=== PATIENT | male | born 1965 | race African-American/Black ===

== ENCOUNTER 2018-10-06 13:01 | Inpatient (IN) ==
[2018-10-06 14:17] LABS: Eosinophils # 0.1 10*3/uL (0.0-0.87); Eosinophils % 2.3 % (0.00-10.9); Hematocrit 35.1 VOL% (42.0-52.0); Immature Granulocytes % 0.5 %; Immature Granulocytes Absolute 0.02 #; Lymphocytes # 0.9 10*3/uL (1.4-4.0); Lymphocytes % 24.5 % (21.2-54.2); Mean Corpuscular HGB Conc 31.3 GM/DL (32-36); Mean Corpuscular Hemoglobin 29 PG (27-34); Mean Corpuscular Volume 90.9 FL (87-102); Mean Platelet Volume 9.8 FL (9.6-12.0); Monocytes # 0.4 10*3/uL (0.11-0.8); Monocytes % 9.6 % (1.7-12.7); Neutrophils # 2.4 10*3/uL (1.4-7.4); Neutrophils % 62.1 % (38.7-73.9); Platelet Count 244 T/CUMM (130-400); Red Blood Count 3.86 MC/CUMM (3.8-5.5); Red Cell Distribution Width 13.3 % (9.3-17.3); White Blood Count 3.8 T/CUMM (4-12)
[2018-10-06 14:43] LABS: Albumin 2.7 G/DL (3.4-5.0); Osmolality,Calculated 264.4 MOS/KG (273-304); Total Protein 8.7 G/DL (6.4-8.3)
[2018-10-06] MEDS ORDERED: ONDANSETRON 4 MG/2 ML VIAL IV STA (15:15)
[2018-10-06] MEDS ORDERED: NITROGLYCERIN 2% OINT 1 INCH/GM PACK TOP STA (15:15)
[2018-10-06] MEDS ORDERED: ASPIRIN 325 MG TABLET PO STA (15:15)
[2018-10-06] MEDS ORDERED: MORPHINE 4 MG/1 ML VIAL IV STA (15:15)
[2018-10-06] MEDS ORDERED: DEXTROSE 50% 25 GM/50 ML VIAL IV PRN (15:31)
[2018-10-06] MEDS ORDERED: GLUCAGON 1 MG VIAL IM PRN (15:31)
[2018-10-06] MEDS ORDERED: ACETAMINOPHEN 325 MG TABLET PO PRN (15:31)
[2018-10-06] MEDS ORDERED: ONDANSETRON 4 MG/2 ML VIAL IV PRN (15:31)
[2018-10-06] MEDS ORDERED: MAGNESIUM SULF RIDER 2 GM in PREMIX 1 EACH IV PRN (15:35)
[2018-10-06] MEDS ORDERED: POTASSIUM CHLORIDE RIDER 10 MEQ in PREMIX 1 EACH IV PRN (15:35)
[2018-10-06] MEDS ORDERED: POTASSIUM CHLORIDE 20 MEQ TABLET PO PRN (15:35)
[2018-10-06] MEDS ORDERED: MAGNESIUM SULF RIDER 4 GM in PREMIX 1 EACH IV PRN (15:35)
[2018-10-06 16:09] LABS: Apearance,Urine CLEAR (Clear); Bilirubin,Urine Negative (Negative); Blood, Urine Small mg/dL (Negative); Glucose,Urine (UA) Negative (Negative); Ketones,Urine Negative (Negative); Nitrite,Urine Negative (Negative); Protein,Urine Negative; RBC,Urine 1 /HPF (0-4); Squamous Epithelial Cell,Urine Occasional /HPF (0-10); Urine Color Yellow (Yellow); Urine Specific Gravity 1.008 (1.001-1.035); WBC,Urine 1 /HPF (0-6)
[2018-10-06 16:32] LABS: Thyroid Stimulating Hormone 1.91 uIU/ml (0.358-3.74)
[2018-10-06] MEDS: PANTOPRAZOLE 40 MG TABLET PO SCH (17:26)
[2018-10-06] MEDS: ENOXAPARIN 40 MG/0.4 ML SYRINGE SUBCUT SCH (17:29)
[2018-10-06] MEDS: FUROSEMIDE 40 MG/4 ML VIAL IV SCH (17:30)
[2018-10-06] MEDS: INSULIN LISPRO 100 UNIT/ML SUBCUT SCH ×2 (18:12→21:16)
[2018-10-06] MEDS: POTASSIUM CHLORIDE 20 MEQ TABLET PO SCH (21:16)
[2018-10-07 05:54] LABS: Basophils % 0.8 % (0.0-0.8); Eosinophils # 0.1 10*3/uL (0.0-0.87); Eosinophils % 2.2 % (0.00-10.9); Hematocrit 28.3 VOL% (42.0-52.0); Immature Granulocytes % 0.3 %; Immature Granulocytes Absolute 0.01 #; Lymphocytes # 0.8 10*3/uL (1.4-4.0); Lymphocytes % 22.1 % (21.2-54.2); Mean Corpuscular HGB Conc 31.8 GM/DL (32-36); Mean Corpuscular Hemoglobin 29 PG (27-34); Mean Corpuscular Volume 90.1 FL (87-102); Mean Platelet Volume 9.7 FL (9.6-12.0); Monocytes # 0.5 10*3/uL (0.11-0.8); Monocytes % 13.7 % (1.7-12.7); Neutrophils # 2.2 10*3/uL (1.4-7.4); Neutrophils % 60.9 % (38.7-73.9); Platelet Count 241 T/CUMM (130-400); Red Blood Count 3.14 MC/CUMM (3.8-5.5); Red Cell Distribution Width 13.2 % (9.3-17.3); White Blood Count 3.6 T/CUMM (4-12)
[2018-10-07 06:16] LABS: Albumin 2.4 G/DL (3.4-5.0); Bilirubin,Total 1.1 MG/DL (0.2-1.0); Calcium 7.8 MG/DL (8.5-10.1); Osmolality,Calculated 261.5 MOS/KG (273-304); Potassium 3.9 MMOL/L (3.5-5.1); Risk Ratio 1.68; Total Protein 7.9 G/DL (6.4-8.3); VLDL CHOLESTEROL 9.6 MG/DL
[2018-10-07] MEDS: INSULIN LISPRO 100 UNIT/ML SUBCUT SCH (07:57)
[2018-10-07 10:03] LABS: INR 1.2; PT Patient Result 13.4 SECS
[2018-10-07] MEDS: POTASSIUM CHLORIDE 20 MEQ TABLET PO SCH ×2 (10:29→21:44)
[2018-10-07] MEDS: PANTOPRAZOLE 40 MG TABLET PO SCH (10:29)
[2018-10-07] MEDS: FUROSEMIDE 40 MG/4 ML VIAL IV SCH (10:29)
[2018-10-07] MEDS ORDERED: LACTULOSE 20 GM/30 ML UDCUP PO SCH (10:30)
[2018-10-07] MEDS: cefTRIAXone 1,000 MG in SYRINGE 1 EACH IV SCH (10:36)
[2018-10-07 10:37] LABS: % Iron Saturation 8.5 % (18-50); Ferritin 322.5 ng/ml (26-388)
[2018-10-07 11:00] LABS: Folate 5.7 NG/ML (5.4-24.0)
[2018-10-07] MEDS: AZITHROMYCIN INJ 500 MG in SODIUM CHLORIDE 0.9% 250 ML IV SCH (11:45)
[2018-10-07] MEDS: SPIRONOLACTONE 25 MG TABLET PO SCH ×2 (11:45→21:45)
[2018-10-07] MEDS: LACTULOSE 20 GM/30 ML UDCUP PO SCH ×3 (11:45→21:45)
[2018-10-07] MEDS: ALBUTEROL/IPRATROPIUM 3 ML NEB RESP TX SCH ×3 (14:27→23:48)
[2018-10-07 15:12] LABS: Total Protein,Pleural Fluid 5.7 G/DL
[2018-10-07 15:44] LABS: RBC,Pleural Fluid > 100000 T/CUMM
[2018-10-07] MEDS: CYANOCOBALAMIN 1000 MCG/1 ML VIAL IM SCH (18:18)
[2018-10-07 19:18] LABS: Lymphocytes,Pleural Fluid 98 %; Neutrophils,Pleural Fluid 2 %
[2018-10-07] MEDS: FOLIC ACID 1 MG TABLET PO SCH (21:44)
[2018-10-07] MEDS: ENOXAPARIN 40 MG/0.4 ML SYRINGE SUBCUT SCH (21:46)
[2018-10-08] MEDS: ALBUTEROL/IPRATROPIUM 3 ML NEB RESP TX SCH ×6 (03:14→23:17)
[2018-10-08 05:14] LABS: Eosinophils # 0.1 10*3/uL (0.0-0.87); Eosinophils % 1.7 % (0.00-10.9); Hematocrit 27.9 VOL% (42.0-52.0); Hemoglobin 8.7 GM/DL (14.0-18.0); Immature Granulocytes % 0.2 %; Immature Granulocytes Absolute 0.01 #; Mean Corpuscular HGB Conc 31.2 GM/DL (32-36); Mean Corpuscular Hemoglobin 28 PG (27-34); Mean Corpuscular Volume 90.9 FL (87-102); Mean Platelet Volume 9.4 FL (9.6-12.0); Monocytes # 0.6 10*3/uL (0.11-0.8); Monocytes % 14.3 % (1.7-12.7); Neutrophils # 2.4 10*3/uL (1.4-7.4); Neutrophils % 58.8 % (38.7-73.9); Platelet Count 202 T/CUMM (130-400); Red Blood Count 3.07 MC/CUMM (3.8-5.5); Red Cell Distribution Width 13.3 % (9.3-17.3); White Blood Count 4.1 T/CUMM (4-12)
[2018-10-08 05:26] LABS: Calcium 7.5 MG/DL (8.5-10.1); Osmolality,Calculated 264.4 MOS/KG (273-304); Potassium 3.9 MMOL/L (3.5-5.1)
[2018-10-08] MEDS ORDERED: MAGNESIUM SULF RIDER 4 GM in PREMIX 1 EACH IV ONE (08:00)
[2018-10-08] MEDS ORDERED: FUROSEMIDE 40 MG/4 ML VIAL IV SCH (09:00)
[2018-10-08] MEDS: SPIRONOLACTONE 25 MG TABLET PO SCH (09:52)
[2018-10-08] MEDS: PANTOPRAZOLE 40 MG TABLET PO SCH (09:53)
[2018-10-08] MEDS: POTASSIUM CHLORIDE 20 MEQ TABLET PO SCH (09:53)
[2018-10-08] MEDS: cefTRIAXone 1,000 MG in SYRINGE 1 EACH IV SCH (09:53)
[2018-10-08] MEDS: AZITHROMYCIN INJ 500 MG in SODIUM CHLORIDE 0.9% 250 ML IV SCH (09:54)
[2018-10-08] MEDS: LACTULOSE 20 GM/30 ML UDCUP PO SCH (09:54)
[2018-10-08] MEDS: CYANOCOBALAMIN 1000 MCG/1 ML VIAL IM SCH (09:54)
[2018-10-08] MEDS: predniSONE 20 MG TABLET PO SCH (12:49)
[2018-10-08] MEDS ORDERED: MAGNESIUM SULF RIDER 2 GM in PREMIX 1 EACH IV PRN (13:48)
[2018-10-08] MEDS ORDERED: POTASSIUM CHLORIDE RIDER 10 MEQ in PREMIX 1 EACH IV PRN (13:48)
[2018-10-08] MEDS: ENOXAPARIN 40 MG/0.4 ML SYRINGE SUBCUT SCH (21:16)
[2018-10-08] MEDS: FOLIC ACID 1 MG TABLET PO SCH (21:17)
[2018-10-09] MEDS: ALBUTEROL/IPRATROPIUM 3 ML NEB RESP TX SCH ×3 (02:19→11:49)
[2018-10-09 05:17] LABS: Basophils % 0.2 % (0.0-0.8); Hematocrit 27.5 VOL% (42.0-52.0); Hemoglobin 8.7 GM/DL (14.0-18.0); Immature Granulocytes % 0.4 %; Immature Granulocytes Absolute 0.02 #; Lymphocytes # 0.4 10*3/uL (1.4-4.0); Lymphocytes % 8.9 % (21.2-54.2); Mean Corpuscular HGB Conc 31.6 GM/DL (32-36); Mean Corpuscular Hemoglobin 29 PG (27-34); Mean Corpuscular Volume 91.1 FL (87-102); Mean Platelet Volume 9.7 FL (9.6-12.0); Monocytes # 0.4 10*3/uL (0.11-0.8); Monocytes % 9.1 % (1.7-12.7); Neutrophils # 3.8 10*3/uL (1.4-7.4); Neutrophils % 81.4 % (38.7-73.9); Platelet Count 208 T/CUMM (130-400); Red Blood Count 3.02 MC/CUMM (3.8-5.5); Red Cell Distribution Width 13.2 % (9.3-17.3); White Blood Count 4.6 T/CUMM (4-12)
[2018-10-09 05:36] LABS: Calcium 7.6 MG/DL (8.5-10.1); Osmolality,Calculated 268.2 MOS/KG (273-304); Potassium 4.1 MMOL/L (3.5-5.1)
[2018-10-09] MEDS ORDERED: diphenhydrAMINE CAP 25 MG CAPSULE PO ONE (07:00)
[2018-10-09] MEDS ORDERED: DIAZEPAM 5 MG TABLET PO ONE (07:00)
[2018-10-09] MEDS ORDERED: LACTULOSE 20 GM/30 ML UDCUP PO SCH (09:00)
[2018-10-09] MEDS ORDERED: AZITHROMYCIN 250 MG TABLET PO SCH (10:00)
[2018-10-09] MEDS ORDERED: CEFDINIR 300 MG CAPSULE PO SCH (10:00)
[2018-10-09] MEDS: PANTOPRAZOLE 40 MG TABLET PO SCH (10:03)
[2018-10-09] MEDS: CYANOCOBALAMIN 1000 MCG/1 ML VIAL IM SCH (10:03)
[2018-10-09] MEDS: predniSONE 20 MG TABLET PO SCH (10:03)
[2018-10-09] MEDS: AZITHROMYCIN INJ 500 MG in SODIUM CHLORIDE 0.9% 250 ML IV SCH (10:07)
[2018-10-09 11:56] VITALS: BP 143/91
== END 2018-10-09 13:10 | disposition home or self-care (01) | DRG 194 ==
LOC: N.ED 13:01 → N.EDINP 13:01 → SUATTDRO 15:31 → N.2E 16:32
PROVIDERS: ADMIT Internal Medicine Nephrology; ATTEND Internal Medicine

== ENCOUNTER 2019-06-20 15:04 | Inpatient (IN) ==
[2019-06-20] MEDS ORDERED: LACTATED RINGERS 1,000 ML IV ONE (15:23)
[2019-06-20] MEDS ORDERED: ONDANSETRON 4 MG/2 ML VIAL IV ONE (15:24)
[2019-06-20 15:50] LABS: Basophils % 0.7 % (0.0-0.8); Eosinophils % 0.2 % (0.00-10.9); Hematocrit 42.5 VOL% (42.0-52.0); Immature Granulocytes % 0.5 %; Immature Granulocytes Absolute 0.03 #; Lymphocytes # 0.5 10*3/uL (1.4-4.0); Lymphocytes % 7.8 % (21.2-54.2); Mean Corpuscular HGB Conc 32.9 GM/DL (32-36); Mean Platelet Volume 9.6 FL (9.6-12.0); Monocytes % 3.1 % (1.7-12.7); Neutrophils % 87.7 % (38.7-73.9); Platelet Count 216 T/CUMM (130-400); Red Blood Count 4.62 MC/CUMM (3.8-5.5); Red Cell Distribution Width 13.8 % (9.3-17.3); White Blood Count 5.9 T/CUMM (4-12)
[2019-06-20 16:09] LABS: Albumin 3.4 G/DL (3.4-5.0); Calcium 8.7 MG/DL (8.5-10.1); Osmolality,Calculated 272.8 MOS/KG (273-304); Total Protein 9.6 G/DL (6.4-8.3)
[2019-06-20] MEDS ORDERED: LABETALOL 20 MG/4 ML SYRINGE IV ONE ×2 (17:25→18:05)
[2019-06-20] MEDS ORDERED: LABETALOL 20 MG/4 ML SYRINGE IV STA ×3 (17:35→18:55)
[2019-06-20] MEDS ORDERED: HYDROmorphone 2 MG/1 ML VIAL ONE (18:39)
[2019-06-20] MEDS ORDERED: HYDROmorphone 2 MG/1 ML VIAL IV STA (18:45)
[2019-06-20] MEDS ORDERED: ONDANSETRON 4 MG/2 ML VIAL IV STA (18:55)
[2019-06-20] MEDS ORDERED: hydrALAZINE 20 MG/1 ML VIAL ONE (22:44)
[2019-06-20] MEDS ORDERED: hydrALAZINE 20 MG/1 ML VIAL IV ONE (22:49)
[2019-06-20] MEDS ORDERED: PROMETHAZINE 25 MG/1 ML VIAL IM PRN (23:02)
[2019-06-20] MEDS ORDERED: ACETAMINOPHEN 325 MG TABLET PO PRN (23:02)
[2019-06-20] MEDS: SODIUM CHLORIDE 0.9% 1,000 ML IV SCH (23:36)
[2019-06-20] MEDS: cloNIDine 0.1 MG/24 HR PATCH TRANSDERM SCH (23:36)
[2019-06-20] MEDS: LORazepam 0.5 MG TABLET PO SCH (23:36)
[2019-06-21 04:31] LABS: Basophils % 0.5 % (0.0-0.8); Eosinophils % 0.5 % (0.00-10.9); Hematocrit 36.7 VOL% (42.0-52.0); Hemoglobin 12.1 GM/DL (14.0-18.0); INR 1.2; Immature Granulocytes % 0.4 %; Immature Granulocytes Absolute 0.03 #; Lymphocytes # 0.9 10*3/uL (1.4-4.0); Lymphocytes % 10.4 % (21.2-54.2); Mean Corpuscular Volume 92.4 FL (87-102); Mean Platelet Volume 9.7 FL (9.6-12.0); Monocytes % 8.5 % (1.7-12.7); Neutrophils % 79.7 % (38.7-73.9); PT Patient Result 12.8 SECS (9.6-12.2); Platelet Count 217 T/CUMM (130-400); Red Blood Count 3.97 MC/CUMM (3.8-5.5); Red Cell Distribution Width 13.5 % (9.3-17.3); White Blood Count 8.5 T/CUMM (4-12)
[2019-06-21] MEDS: HYDROmorphone 2 MG/1 ML VIAL IV PRN ×4 (04:37→21:49)
[2019-06-21 04:51] LABS: Albumin 2.8 G/DL (3.4-5.0); Bilirubin,Total 1.5 MG/DL (0.2-1.0); Calcium 8.4 MG/DL (8.5-10.1); Total Protein 8.2 G/DL (6.4-8.3)
[2019-06-21] MEDS ORDERED: POTASSIUM CHLORIDE RIDER 20 MEQ in PREMIX 1 EACH IV PRN (06:13)
[2019-06-21] MEDS ORDERED: MAGNESIUM SULF RIDER 2 GM in PREMIX 1 EACH IV ONE (06:30)
[2019-06-21] MEDS ORDERED: POTASSIUM CHLORIDE RIDER 10 MEQ in PREMIX 1 EACH IV PRN (06:31)
[2019-06-21] MEDS: carvediloL 3.125 MG TABLET PO SCH ×2 (07:31→16:29)
[2019-06-21] MEDS: SODIUM CHLORIDE 0.9% 1,000 ML IV SCH ×3 (07:31→23:44)
[2019-06-21] MEDS: ALLOPURINOL 100 MG TABLET PO SCH (08:27)
[2019-06-21] MEDS: ENOXAPARIN 40 MG/0.4 ML SYRINGE SUBCUT SCH (08:27)
[2019-06-21] MEDS: MAGNESIUM OXIDE 400 MG TABLET PO SCH ×2 (08:27→20:53)
[2019-06-21] MEDS: LORazepam 0.5 MG TABLET PO SCH ×2 (08:27→20:31)
[2019-06-21] MEDS: DOCUSATE SODIUM 100 MG CAPSULE PO SCH ×2 (08:27→20:31)
[2019-06-21] MEDS: LISINOPRIL 20 MG TABLET PO SCH (08:27)
[2019-06-21] MEDS: FUROSEMIDE 20 MG TABLET PO SCH (08:27)
[2019-06-21] MEDS: SPIRONOLACTONE 25 MG TABLET PO SCH (08:27)
[2019-06-21] MEDS: PANTOPRAZOLE 40 MG TABLET PO SCH (08:27)
[2019-06-21] MEDS: cloNIDine 0.1 MG/24 HR PATCH TRANSDERM SCH (08:33)
[2019-06-21] MEDS ORDERED: FUROSEMIDE 20 MG TABLET PO SCH (09:00)
[2019-06-21] MEDS ORDERED: LIDOCAINE 1% 20 ML VIAL ONE (10:31)
[2019-06-21] MEDS: LACTATED RINGERS 1,000 ML IV SCH ×2 (11:00→14:52)
[2019-06-21] MEDS ORDERED: LIDOCAINE 2% TOP JELLY 20 ML VIAL INTRAURETH ONE (11:19)
[2019-06-21 12:49] LABS: Apearance,Urine CLEAR (Clear); Bacteria,Urine Occasional /HPF (Few); Bilirubin,Urine Negative (Negative); Blood, Urine Large mg/dL (Negative); Glucose,Urine (UA) Negative (Negative); Ketones,Urine 20 mg/dL (Negative); Nitrite,Urine Negative (Negative); Protein,Urine Negative; RBC,Urine 13 /HPF (0-4); Squamous Epithelial Cell,Urine Occasional /HPF (0-10); Urine Color Yellow (Yellow); WBC,Urine 1 /HPF (0-6)
[2019-06-21] MEDS ORDERED: PROPOFOL 200 MG/20 ML VIAL IV ONE (12:54)
[2019-06-21] MEDS ORDERED: SEVOFLURANE 1 UNIT/15 MINUTE INH ONE (12:55)
[2019-06-21] MEDS ORDERED: ETOMIDATE 40 MG/20 ML VIAL IV ONE (12:55)
[2019-06-21] MEDS ORDERED: PHENYLEPHRINE 1 MG/10 ML SYRINGE IV ONE (12:55)
[2019-06-21] MEDS ORDERED: GLYCOPYRROLATE 0.4 MG/2 ML VIAL ONE (12:55)
[2019-06-21] MEDS ORDERED: MIDAZOLAM 2 MG/2 ML VIAL ONE (12:55)
[2019-06-21] MEDS ORDERED: ONDANSETRON 4 MG/2 ML VIAL ONE (12:55)
[2019-06-21] MEDS ORDERED: fentaNYL 100 MCG/2 ML VIAL ONE (12:55)
[2019-06-21] MEDS ORDERED: ROCURONIUM 100 MG/10 ML VIAL IV ONE (12:56)
[2019-06-21] MEDS ORDERED: LACTATED RINGERS 1,000 ML IV ONE (12:56)
[2019-06-21] MEDS ORDERED: NEOSTIGMINE 10 MG/10 ML VIAL ONE (12:56)
[2019-06-21] MEDS ORDERED: SODIUM CHLORIDE 0.9% 100 ML IV ONE (12:56)
[2019-06-21] MEDS ORDERED: SUCCINYLCHOLINE 200 MG/10 ML VIAL ONE (12:56)
[2019-06-21] MEDS ORDERED: ONDANSETRON 4 MG/2 ML VIAL IV PRN (13:14)
[2019-06-22] MEDS ORDERED: LACTATED RINGERS 1,000 ML IV ONE (06:05)
[2019-06-22] MEDS: SODIUM CHLORIDE 0.9% 1,000 ML IV SCH ×2 (06:12→16:40)
[2019-06-22 06:53] LABS: Basophils # 0.1 10*3/uL (0.0-0.2); Basophils % 0.3 % (0.0-0.8); Eosinophils % 0.1 % (0.00-10.9); Hematocrit 34.8 VOL% (42.0-52.0); Hemoglobin 11.3 GM/DL (14.0-18.0); Immature Granulocytes % 0.8 %; Immature Granulocytes Absolute 0.12 #; Lymphocytes # 1.2 10*3/uL (1.4-4.0); Lymphocytes % 8.2 % (21.2-54.2); Mean Corpuscular HGB Conc 32.5 GM/DL (32-36); Mean Corpuscular Volume 93.8 FL (87-102); Neutrophils % 79.6 % (38.7-73.9); Platelet Count 247 T/CUMM (130-400); Red Blood Count 3.71 MC/CUMM (3.8-5.5); Red Cell Distribution Width 13.8 % (9.3-17.3); White Blood Count 14.7 T/CUMM (4-12)
[2019-06-22 07:15] LABS: Calcium 7.1 MG/DL (8.5-10.1); Osmolality,Calculated 272.8 MOS/KG (273-304)
[2019-06-22] MEDS: SPIRONOLACTONE 25 MG TABLET PO SCH (09:12)
[2019-06-22] MEDS: FUROSEMIDE 20 MG TABLET PO SCH (09:12)
[2019-06-22] MEDS: DOCUSATE SODIUM 100 MG CAPSULE PO SCH (09:12)
[2019-06-22] MEDS: ALLOPURINOL 100 MG TABLET PO SCH (09:12)
[2019-06-22] MEDS: MAGNESIUM OXIDE 400 MG TABLET PO SCH (09:12)
[2019-06-22] MEDS: PANTOPRAZOLE 40 MG TABLET PO SCH (09:12)
[2019-06-22] MEDS: LORazepam 0.5 MG TABLET PO SCH ×2 (09:12→20:24)
[2019-06-22] MEDS: carvediloL 3.125 MG TABLET PO SCH ×2 (09:13→17:21)
[2019-06-22] MEDS: LISINOPRIL 20 MG TABLET PO SCH (09:13)
[2019-06-22] MEDS: ENOXAPARIN 40 MG/0.4 ML SYRINGE SUBCUT SCH (09:13)
[2019-06-22] MEDS: cefOXitin 1,000 MG in SYRINGE 1 EACH IV SCH ×3 (09:56→20:24)
[2019-06-22] MEDS: HYDROmorphone 2 MG/1 ML VIAL IV PRN ×2 (14:43→20:25)
[2019-06-22] MEDS: ALBUMIN 25% 25 GM in PREMIX 1 EACH IV SCH ×2 (16:39→22:13)
[2019-06-22] MEDS ORDERED: MAGNESIUM SULF RIDER 4 GM in PREMIX 1 EACH IV PRN (17:27)
[2019-06-22] MEDS: metroNIDAZOLE INJ 500 MG in PREMIX 1 EACH IV SCH (20:05)
[2019-06-23] MEDS: SODIUM CHLORIDE 0.9% 1,000 ML IV SCH ×4 (00:30→23:09)
[2019-06-23] MEDS: HYDROmorphone 2 MG/1 ML VIAL IV PRN ×4 (02:23→21:10)
[2019-06-23] MEDS: metroNIDAZOLE INJ 500 MG in PREMIX 1 EACH IV SCH ×3 (02:23→19:12)
[2019-06-23] MEDS: cefOXitin 1,000 MG in SYRINGE 1 EACH IV SCH ×4 (03:23→21:12)
[2019-06-23 04:05] LABS: Basophils # 0.1 10*3/uL (0.0-0.2); Basophils % 0.4 % (0.0-0.8); Eosinophils # 0.1 10*3/uL (0.0-0.87); Eosinophils % 0.9 % (0.00-10.9); Hemoglobin 10.7 GM/DL (14.0-18.0); Immature Granulocytes % 0.5 %; Immature Granulocytes Absolute 0.06 #; Lymphocytes # 0.8 10*3/uL (1.4-4.0); Lymphocytes % 6.2 % (21.2-54.2); Mean Corpuscular HGB Conc 32.4 GM/DL (32-36); Mean Corpuscular Volume 92.7 FL (87-102); Mean Platelet Volume 10.1 FL (9.6-12.0); Monocytes % 8.7 % (1.7-12.7); Neutrophils % 83.3 % (38.7-73.9); Platelet Count 203 T/CUMM (130-400); Red Blood Count 3.56 MC/CUMM (3.8-5.5); Red Cell Distribution Width 13.8 % (9.3-17.3); White Blood Count 12.6 T/CUMM (4-12)
[2019-06-23 04:23] LABS: Albumin 2.7 G/DL (3.4-5.0); Bilirubin,Total 1.8 MG/DL (0.2-1.0); Calcium 7.4 MG/DL (8.5-10.1); Osmolality,Calculated 276.7 MOS/KG (273-304); Total Protein 6.5 G/DL (6.4-8.3)
[2019-06-23] MEDS: ALBUMIN 25% 25 GM in PREMIX 1 EACH IV SCH ×3 (05:47→22:59)
[2019-06-23] MEDS: carvediloL 3.125 MG TABLET PO SCH ×2 (08:44→19:12)
[2019-06-23] MEDS: LORazepam 0.5 MG TABLET PO SCH ×2 (08:44→21:09)
[2019-06-23] MEDS: ENOXAPARIN 40 MG/0.4 ML SYRINGE SUBCUT SCH (09:30)
[2019-06-23 09:54] LABS: Neutrophils,Peritoneal Fluid 82 %
[2019-06-23 09:55] LABS: RBC,Peritoneal Fluid > 100000 T/CUMM
[2019-06-23] MEDS: ONDANSETRON 4 MG/2 ML VIAL IV PRN ×2 (14:03→21:07)
[2019-06-24] MEDS: metroNIDAZOLE INJ 500 MG in PREMIX 1 EACH IV SCH ×3 (02:33→18:41)
[2019-06-24] MEDS: cefOXitin 1,000 MG in SYRINGE 1 EACH IV SCH ×4 (02:36→20:16)
[2019-06-24 04:48] LABS: Basophils % 0.4 % (0.0-0.8); Eosinophils # 0.1 10*3/uL (0.0-0.87); Eosinophils % 1.5 % (0.00-10.9); Hematocrit 33.3 VOL% (42.0-52.0); Hemoglobin 10.8 GM/DL (14.0-18.0); Immature Granulocytes % 0.4 %; Immature Granulocytes Absolute 0.03 #; Lymphocytes # 0.7 10*3/uL (1.4-4.0); Lymphocytes % 8.3 % (21.2-54.2); Mean Corpuscular HGB Conc 32.4 GM/DL (32-36); Mean Corpuscular Volume 92.8 FL (87-102); Mean Platelet Volume 9.8 FL (9.6-12.0); Monocytes % 10.1 % (1.7-12.7); Neutrophils % 79.3 % (38.7-73.9); Platelet Count 189 T/CUMM (130-400); Red Blood Count 3.59 MC/CUMM (3.8-5.5); Red Cell Distribution Width 13.4 % (9.3-17.3); White Blood Count 8.2 T/CUMM (4-12)
[2019-06-24 05:10] LABS: Bilirubin,Total 1.6 MG/DL (0.2-1.0); Calcium 7.7 MG/DL (8.5-10.1); Osmolality,Calculated 277.5 MOS/KG (273-304); Total Protein 6.3 G/DL (6.4-8.3)
[2019-06-24] MEDS: ALBUMIN 25% 25 GM in PREMIX 1 EACH IV SCH (05:33)
[2019-06-24] MEDS: SODIUM CHLORIDE 0.9% 1,000 ML IV SCH ×3 (06:09→17:53)
[2019-06-24] MEDS: LORazepam 0.5 MG TABLET PO SCH ×2 (08:43→20:16)
[2019-06-24] MEDS: ENOXAPARIN 40 MG/0.4 ML SYRINGE SUBCUT SCH (08:43)
[2019-06-24] MEDS: carvediloL 3.125 MG TABLET PO SCH ×2 (08:43→18:41)
[2019-06-24] MEDS: ONDANSETRON 4 MG/2 ML VIAL IV PRN (09:00)
[2019-06-24] MEDS: hydrALAZINE 20 MG/1 ML VIAL IV PRN ×2 (09:05→18:41)
[2019-06-24] MEDS: HYDROmorphone 2 MG/1 ML VIAL IV PRN ×2 (11:00→20:17)
[2019-06-24] MEDS ORDERED: INFLUENZA VIRUS VACCINE 0.5 ML SYRINGE IM ONE (11:28)
[2019-06-24] MEDS: METOCLOPRAMIDE 10 MG/2 ML VIAL IV SCH ×3 (11:45→23:51)
[2019-06-25] MEDS: metroNIDAZOLE INJ 500 MG in PREMIX 1 EACH IV SCH ×3 (02:05→17:17)
[2019-06-25] MEDS: SODIUM CHLORIDE 0.9% 1,000 ML IV SCH ×3 (02:47→23:00)
[2019-06-25] MEDS: cefOXitin 1,000 MG in SYRINGE 1 EACH IV SCH ×4 (03:30→21:43)
[2019-06-25] MEDS: METOCLOPRAMIDE 10 MG/2 ML VIAL IV SCH (06:15)
[2019-06-25] MEDS: carvediloL 3.125 MG TABLET PO SCH ×2 (09:41→17:17)
[2019-06-25] MEDS: ALLOPURINOL 100 MG TABLET PO SCH (09:41)
[2019-06-25] MEDS: METOCLOPRAMIDE 10 MG/10 ML UDCUP PO SCH ×4 (09:41→21:43)
[2019-06-25] MEDS: ENOXAPARIN 40 MG/0.4 ML SYRINGE SUBCUT SCH (09:41)
[2019-06-25] MEDS: LORazepam 0.5 MG TABLET PO SCH ×2 (09:41→21:43)
[2019-06-25] MEDS: HYDROmorphone 2 MG/1 ML VIAL IV PRN (18:44)
[2019-06-26] MEDS: metroNIDAZOLE INJ 500 MG in PREMIX 1 EACH IV SCH ×3 (02:19→18:00)
[2019-06-26] MEDS: cefOXitin 1,000 MG in SYRINGE 1 EACH IV SCH ×4 (03:54→21:36)
[2019-06-26 06:04] LABS: Basophils % 0.6 % (0.0-0.8); Eosinophils # 0.3 10*3/uL (0.0-0.87); Eosinophils % 5.3 % (0.00-10.9); Hematocrit 28.4 VOL% (42.0-52.0); Hemoglobin 9.3 GM/DL (14.0-18.0); Immature Granulocytes % 0.4 %; Immature Granulocytes Absolute 0.02 #; Mean Corpuscular HGB Conc 32.7 GM/DL (32-36); Mean Corpuscular Volume 92.5 FL (87-102); Mean Platelet Volume 9.6 FL (9.6-12.0); Monocytes % 14.7 % (1.7-12.7); Platelet Count 197 T/CUMM (130-400); Red Blood Count 3.07 MC/CUMM (3.8-5.5); Red Cell Distribution Width 13.7 % (9.3-17.3); White Blood Count 5.1 T/CUMM (4-12)
[2019-06-26 06:34] LABS: Albumin 2.4 G/DL (3.4-5.0); Bilirubin,Total 0.8 MG/DL (0.2-1.0); Calcium 7.3 MG/DL (8.5-10.1); Osmolality,Calculated 273.7 MOS/KG (273-304); Total Protein 5.6 G/DL (6.4-8.3)
[2019-06-26] MEDS: METOCLOPRAMIDE 10 MG/10 ML UDCUP PO SCH ×4 (07:33→21:34)
[2019-06-26] MEDS: ENOXAPARIN 40 MG/0.4 ML SYRINGE SUBCUT SCH (08:56)
[2019-06-26] MEDS: carvediloL 3.125 MG TABLET PO SCH ×2 (08:57→16:04)
[2019-06-26] MEDS: ALLOPURINOL 100 MG TABLET PO SCH (08:57)
[2019-06-26] MEDS: LORazepam 0.5 MG TABLET PO SCH ×2 (08:57→21:33)
[2019-06-26] MEDS: FUROSEMIDE 40 MG TABLET PO SCH (11:57)
[2019-06-26] MEDS: SPIRONOLACTONE 100 MG TABLET PO SCH (11:57)
[2019-06-26] MEDS: SODIUM CHLORIDE 0.9% 1,000 ML IV SCH ×2 (12:17→18:00)
[2019-06-27] MEDS: ONDANSETRON 4 MG/2 ML VIAL IV PRN (00:11)
[2019-06-27] MEDS: HYDROmorphone 2 MG/1 ML VIAL IV PRN (01:42)
[2019-06-27] MEDS: SODIUM CHLORIDE 0.9% 1,000 ML IV SCH ×2 (01:47→10:56)
[2019-06-27] MEDS: cefOXitin 1,000 MG in SYRINGE 1 EACH IV SCH ×4 (02:46→20:18)
[2019-06-27] MEDS: metroNIDAZOLE INJ 500 MG in PREMIX 1 EACH IV SCH ×3 (02:52→17:15)
[2019-06-27 08:20] LABS: Basophils % 0.6 % (0.0-0.8); Eosinophils # 0.3 10*3/uL (0.0-0.87); Eosinophils % 5.6 % (0.00-10.9); Hematocrit 28.2 VOL% (42.0-52.0); Hemoglobin 9.2 GM/DL (14.0-18.0); Immature Granulocytes % 0.6 %; Immature Granulocytes Absolute 0.03 #; Lymphocytes % 19.2 % (21.2-54.2); Mean Corpuscular HGB Conc 32.6 GM/DL (32-36); Mean Corpuscular Volume 91.9 FL (87-102); Mean Platelet Volume 9.5 FL (9.6-12.0); Monocytes % 11.2 % (1.7-12.7); Neutrophils % 62.8 % (38.7-73.9); Platelet Count 191 T/CUMM (130-400); Red Blood Count 3.07 MC/CUMM (3.8-5.5); Red Cell Distribution Width 13.6 % (9.3-17.3); White Blood Count 5.4 T/CUMM (4-12)
[2019-06-27 08:39] LABS: Calcium 7.2 MG/DL (8.5-10.1); Osmolality,Calculated 271.7 MOS/KG (273-304)
[2019-06-27] MEDS: METOCLOPRAMIDE 10 MG/10 ML UDCUP PO SCH ×4 (09:12→20:19)
[2019-06-27] MEDS: carvediloL 3.125 MG TABLET PO SCH ×2 (09:13→17:13)
[2019-06-27] MEDS: SPIRONOLACTONE 100 MG TABLET PO SCH (09:13)
[2019-06-27] MEDS: FUROSEMIDE 40 MG TABLET PO SCH (09:13)
[2019-06-27] MEDS: ENOXAPARIN 40 MG/0.4 ML SYRINGE SUBCUT SCH (09:13)
[2019-06-27] MEDS: LORazepam 0.5 MG TABLET PO SCH ×2 (09:13→20:19)
[2019-06-27] MEDS: ALLOPURINOL 100 MG TABLET PO SCH (09:13)
[2019-06-27] MEDS: POTASSIUM CHLORIDE INJ 20 MEQ in SODIUM CHLORIDE 0.9% 1,000 ML IV SCH ×2 (15:54→23:48)
[2019-06-28] MEDS: POTASSIUM CHLORIDE INJ 20 MEQ in SODIUM CHLORIDE 0.9% 1,000 ML IV SCH ×4 (00:30→23:57)
[2019-06-28] MEDS: cefOXitin 1,000 MG in SYRINGE 1 EACH IV SCH ×4 (02:47→20:40)
[2019-06-28] MEDS: metroNIDAZOLE INJ 500 MG in PREMIX 1 EACH IV SCH ×3 (02:50→18:09)
[2019-06-28 05:05] LABS: Basophils % 0.7 % (0.0-0.8); Eosinophils # 0.3 10*3/uL (0.0-0.87); Eosinophils % 4.4 % (0.00-10.9); Hematocrit 28.1 VOL% (42.0-52.0); Hemoglobin 9.1 GM/DL (14.0-18.0); Immature Granulocytes % 0.7 %; Immature Granulocytes Absolute 0.04 #; Lymphocytes # 1.2 10*3/uL (1.4-4.0); Mean Corpuscular HGB Conc 32.4 GM/DL (32-36); Mean Corpuscular Volume 92.7 FL (87-102); Mean Platelet Volume 9.2 FL (9.6-12.0); Monocytes % 12.2 % (1.7-12.7); Platelet Count 205 T/CUMM (130-400); Red Blood Count 3.03 MC/CUMM (3.8-5.5); Red Cell Distribution Width 13.9 % (9.3-17.3); White Blood Count 6.1 T/CUMM (4-12)
[2019-06-28 05:23] LABS: Albumin 2.3 G/DL (3.4-5.0); Bilirubin,Total 0.7 MG/DL (0.2-1.0); Calcium 7.4 MG/DL (8.5-10.1); Osmolality,Calculated 274.4 MOS/KG (273-304); Total Protein 5.7 G/DL (6.4-8.3)
[2019-06-28] MEDS: FUROSEMIDE 40 MG TABLET PO SCH (09:18)
[2019-06-28] MEDS: SPIRONOLACTONE 100 MG TABLET PO SCH (09:18)
[2019-06-28] MEDS: ALLOPURINOL 100 MG TABLET PO SCH (09:18)
[2019-06-28] MEDS: METOCLOPRAMIDE 10 MG/10 ML UDCUP PO SCH ×4 (09:18→20:40)
[2019-06-28] MEDS: ENOXAPARIN 40 MG/0.4 ML SYRINGE SUBCUT SCH (09:19)
[2019-06-28] MEDS: LORazepam 0.5 MG TABLET PO SCH ×2 (09:24→20:40)
[2019-06-28] MEDS: carvediloL 3.125 MG TABLET PO SCH ×2 (09:58→16:07)
[2019-06-29] MEDS: metroNIDAZOLE INJ 500 MG in PREMIX 1 EACH IV SCH ×3 (01:50→17:42)
[2019-06-29] MEDS: cefOXitin 1,000 MG in SYRINGE 1 EACH IV SCH ×3 (03:52→17:41)
[2019-06-29 04:44] LABS: Basophils % 0.6 % (0.0-0.8); Eosinophils # 0.2 10*3/uL (0.0-0.87); Eosinophils % 3.9 % (0.00-10.9); Hematocrit 31.9 VOL% (42.0-52.0); Hemoglobin 10.4 GM/DL (14.0-18.0); Immature Granulocytes % 0.6 %; Immature Granulocytes Absolute 0.03 #; Lymphocytes % 19.3 % (21.2-54.2); Mean Corpuscular HGB Conc 32.6 GM/DL (32-36); Mean Corpuscular Volume 91.4 FL (87-102); Monocytes % 12.2 % (1.7-12.7); Neutrophils % 63.4 % (38.7-73.9); Platelet Count 224 T/CUMM (130-400); Red Blood Count 3.49 MC/CUMM (3.8-5.5); Red Cell Distribution Width 14.1 % (9.3-17.3); White Blood Count 5.4 T/CUMM (4-12)
[2019-06-29 05:16] LABS: Albumin 2.2 G/DL (3.4-5.0); Bilirubin,Total 0.8 MG/DL (0.2-1.0); Calcium 7.4 MG/DL (8.5-10.1); Osmolality,Calculated 271.7 MOS/KG (273-304); Total Protein 5.9 G/DL (6.4-8.3)
[2019-06-29] MEDS: ALLOPURINOL 100 MG TABLET PO SCH (08:43)
[2019-06-29] MEDS: LORazepam 0.5 MG TABLET PO SCH ×2 (08:43→20:59)
[2019-06-29] MEDS: METOCLOPRAMIDE 10 MG/10 ML UDCUP PO SCH ×4 (08:43→20:59)
[2019-06-29] MEDS: carvediloL 3.125 MG TABLET PO SCH ×2 (08:43→17:42)
[2019-06-29] MEDS: FUROSEMIDE 40 MG TABLET PO SCH ×2 (08:43→17:42)
[2019-06-29] MEDS: SPIRONOLACTONE 100 MG TABLET PO SCH (08:43)
[2019-06-29] MEDS: ENOXAPARIN 40 MG/0.4 ML SYRINGE SUBCUT SCH (08:43)
[2019-06-29] MEDS ORDERED: PANTOPRAZOLE 40 MG TABLET PO SCH (09:30)
[2019-06-29] MEDS: POTASSIUM CHLORIDE 20 MEQ TABLET PO SCH (09:50)
[2019-06-29] MEDS: POTASSIUM CHLORIDE INJ 20 MEQ in SODIUM CHLORIDE 0.9% 1,000 ML IV SCH (11:39)
[2019-06-29] MEDS: PANTOPRAZOLE 40 MG TABLET PO SCH (17:42)
[2019-06-30] MEDS: metroNIDAZOLE INJ 500 MG in PREMIX 1 EACH IV SCH (02:36)
[2019-06-30] MEDS: FUROSEMIDE 40 MG TABLET PO SCH ×2 (09:07→17:20)
[2019-06-30] MEDS: LORazepam 0.5 MG TABLET PO SCH ×2 (09:07→20:53)
[2019-06-30] MEDS: POTASSIUM CHLORIDE 20 MEQ TABLET PO SCH ×2 (09:08→09:11)
[2019-06-30] MEDS: carvediloL 3.125 MG TABLET PO SCH ×2 (09:08→17:20)
[2019-06-30] MEDS: ALLOPURINOL 100 MG TABLET PO SCH (09:08)
[2019-06-30] MEDS: ENOXAPARIN 40 MG/0.4 ML SYRINGE SUBCUT SCH (09:09)
[2019-06-30] MEDS: METOCLOPRAMIDE 10 MG/10 ML UDCUP PO SCH ×4 (09:09→20:53)
[2019-06-30] MEDS: SPIRONOLACTONE 100 MG TABLET PO SCH (09:09)
[2019-06-30] MEDS: PANTOPRAZOLE 40 MG TABLET PO SCH (17:20)
[2019-07-01 07:47] VITALS: BP 141/90
[2019-07-01] MEDS: LORazepam 0.5 MG TABLET PO SCH (08:50)
[2019-07-01] MEDS: FUROSEMIDE 40 MG TABLET PO SCH (08:51)
[2019-07-01] MEDS: SPIRONOLACTONE 100 MG TABLET PO SCH (08:51)
[2019-07-01] MEDS: METOCLOPRAMIDE 10 MG/10 ML UDCUP PO SCH (08:52)
[2019-07-01] MEDS: carvediloL 3.125 MG TABLET PO SCH (08:52)
[2019-07-01] MEDS: ALLOPURINOL 100 MG TABLET PO SCH (08:52)
[2019-07-01] MEDS: POTASSIUM CHLORIDE 20 MEQ TABLET PO SCH (08:53)
[2019-07-01] MEDS: ENOXAPARIN 40 MG/0.4 ML SYRINGE SUBCUT SCH (08:53)
== END 2019-07-01 10:14 | disposition home health service (06) | DRG 329 ==
LOC: N.EDINP 15:04 → N.ED 15:04 → N.3E 22:19 → N.CC 06-22 10:23 → N.2E 06-25 18:14
PROVIDERS: ADMIT Family Medicine; ATTEND Family Medicine